=== PATIENT | female | born 1980 | race Caucasian/White ===

== ENCOUNTER 2019-12-13 07:34 | Emergency (ER) | payer OTHER ==
[~2019-12-13] VITALS: Ht 154.9 cm; Wt 83.0 kg
[~2019-12-13 07:34] MED LIST: CYCLOBENZAPRINE5 MG PO; HYDROCODON-ACE1 EAC7 PO; NAPROSYN500 MG PO
[2019-12-13] MEDS ORDERED: DIAZEPAM 5 MG5 M1 PO (08:39)
[2019-12-13] MEDS ORDERED: VERTICALM25 MG PO (08:39)
[2019-12-13 08:47] VITALS: BP 147/70
== END 2019-12-13 08:48 | disposition home or self-care (01) ==
LOC: M.ERS 07:34
DX: R42 Dizziness and giddiness (principal); Z88.1 Allergy status to other antibiotic agents; Z88.0 Allergy status to penicillin; Z90.49 Acquired absence of other specified parts of digestive tract